=== PATIENT | female | born 1995 | race Caucasian/White ===

== ENCOUNTER 2016-09-22 16:36 | Inpatient (IN) | payer OTHER, MEDICAID ==
[~2016-09-22] VITALS: Ht 152.4 cm; Wt 60.8 kg
[2016-09-22 17:17] VITALS: Ht 152.4 cm; Wt 60.8 kg
[2016-09-22] MEDS ORDERED: LIDOCAINE 1% 30 ML PF INFILTRATE ONE (18:15)
[2016-09-22] MEDS ORDERED: FAMOTIDINE 20 MG TAB PO PRN (18:15)
[2016-09-22] MEDS ORDERED: PROMETHAZINE 25 MG/ML VIAL IV PRN (18:15)
[2016-09-22] MEDS ORDERED: METOCLOPRAMIDE 10 MG/2 ML VIAL IV PUSH PRN (18:15)
[2016-09-22] MEDS ORDERED: TERBUTALINE 1 MG/ML VIAL SUBQ PRN (18:15)
[2016-09-22] MEDS ORDERED: ALU/MAG/SIM 30 ML UDC PO PRN (18:15)
[2016-09-22] MEDS ORDERED: CEFAZOLIN (LD/OB) 100 ML IV PRN (18:15)
[2016-09-22] MEDS ORDERED: FAMOTIDINE 20 MG INJ IV PRN (18:15)
[2016-09-22] MEDS ORDERED: OXYTOCIN 15 UNITS/250 ML NS 250 ML IV SCH ×3 (18:15→22:25)
[2016-09-22] MEDS ORDERED: LACT RINGERS 1,000 ML IV SCH (18:15)
[2016-09-22] MEDS ORDERED: ACETAMINOPHEN 325 MG TAB PO PRN (18:15)
[2016-09-22] MEDS ORDERED: ONDANSETRON 4 MG VIAL IV PRN (18:15)
[2016-09-22] MEDS ORDERED: PENICILLIN G 5 MU in SODIUM CHLORIDE 0.9% 250 ML IV ONE (18:50)
[2016-09-22] MEDS ORDERED: ROPIV/FENT 0.2%-2MCG/ML 100 ML EPIDURAL ONE (20:49)
[2016-09-22] MEDS ORDERED: FENTANYL 100 MCG/2 ML AMP ONE (20:50)
[2016-09-22] MEDS ORDERED: SODIUM CHLORIDE 0.9% 500 ML IV PRN (21:30)
[2016-09-22] MEDS ORDERED: LACT RINGERS 500 ML IV PRN (21:30)
[2016-09-22] MEDS ORDERED: ROPIV/FENT 0.2%-2MCG/ML 100 ML EPIDURAL SCH (21:30)
[2016-09-22] MEDS ORDERED: LACT RINGERS 500 ML IV ONE (21:30)
[2016-09-22] MEDS ORDERED: FENTANYL 100 MCG/2 ML AMP EPIDURAL ONE (21:30)
[2016-09-22] MEDS ORDERED: PENICILLIN G 2.5 MU in SODIUM CHLORIDE 0.9% 100 ML IV SCH (23:00)
[2016-09-23] VITALS (12 sets, daily range): BP systolic 98–136; RESP 16–20; TEMP 97.7–98.3
[2016-09-23] MEDS ORDERED: OXYTOCIN 15 UNITS/250 ML NS 250 ML IV SCH (01:10)
[2016-09-23] MEDS ORDERED: BISACODYL 10 MG SUPP RECTAL PRN (01:10)
[2016-09-23] MEDS ORDERED: MEASLES,MUMPS,RUBELLA VAC SUBQ.VACC ONE (01:10)
[2016-09-23] MEDS ORDERED: DERMOPLAST SPRAY TOPICAL PRN (01:10)
[2016-09-23] MEDS ORDERED: MAG HYDROX 30 ML UDC PO PRN (01:10)
[2016-09-23] MEDS ORDERED: ASTRINGENT MED PADS 40'S TOPICAL PRN (01:10)
[2016-09-23] MEDS ORDERED: TDaP 0.5 ML VIAL IM.VACC ONE (01:10)
[2016-09-23] MEDS: Ibuprofen 600 MG TAB PO SCH ×3 (06:22→17:21)
[2016-09-23] MEDS ORDERED: **ONLY ANESTEHSIA MAY ORDER OPIATES WHILE ON EPIDURAL XX SCH (08:00)
[2016-09-23] MEDS: DOCUSATE SOD 100 MG CAP PO SCH (08:48)
[2016-09-24] MEDS: Ibuprofen 600 MG TAB PO SCH ×4 (00:02→17:13)
[2016-09-24 05:34] VITALS: BP_SYST 118; RESP 16; TEMP 97.9
[2016-09-24] MEDS: DOCUSATE SOD 100 MG CAP PO SCH (08:04)
[2016-09-24 09:33] VITALS: TEMP 97.9
[2016-09-24 09:34] VITALS: BP_SYST 106; RESP 16
[2016-09-24 13:23] VITALS: BP_SYST 119; RESP 16; TEMP 98.2
[2016-09-24 17:19] VITALS: BP_SYST 126; TEMP 98.1
[2016-09-24 17:20] VITALS: RESP 20
[2016-09-25] MEDS: Ibuprofen 600 MG TAB PO SCH ×2 (00:17→05:12)
[2016-09-25 05:14] VITALS: BP_SYST 112; RESP 18; TEMP 97.5
[2016-09-25] MEDS: DOCUSATE SOD 100 MG CAP PO SCH (09:45)
[2016-09-25 09:52] VITALS: BP_SYST 117; TEMP 98
[2016-09-25 10:38] VITALS: BP_SYST 117; RESP 18; TEMP 98
== END 2016-09-25 11:20 | disposition home or self-care (01) | DRG 775 ==
LOC: LDOP 16:36 → LD 18:05 → OB 09-23 04:24
PROVIDERS: ADMIT Obstetrics & Gynecology; ATTEND Obstetrics & Gynecology
PROC: 10907ZC Drainage of Amniotic Fluid, Therapeutic from Products of Conception, Via Natural or Artificial Opening (ICD-10-PCS; 2016-09-22)
PROC: 10E0XZZ Delivery of Products of Conception, External Approach (ICD-10-PCS; principal; 2016-09-23)
PROC: 0W8NXZZ Division of Female Perineum, External Approach (ICD-10-PCS; 2016-09-23)
DX: O69.1XX0 Labor and delivery complicated by cord around neck, with compression, not applicable or unspecified (principal); Z37.0 Single live birth; Z3A.39 39 weeks gestation of pregnancy
CPT/HCPCS: 81002; 82803; 85025